=== PATIENT | male | born 1980 | race Two or more races ===

== ENCOUNTER 2022-05-14 00:30 | Emergency (ER) | payer OTHER ==
[~2022-05-14] VITALS: Ht 177.8 cm; Wt 83.9 kg
[2022-05-14] MEDS ORDERED: LIDOCAINE HCL 1% 20 ML VIAL ONE (01:25)
[2022-05-14] MEDS ORDERED: LIDOCAINE HCL 1% 20 ML VIAL INJ SCH (02:00)
[2022-05-14] MEDS ORDERED: CEPH500B PO (02:14)
[2022-05-14 02:16] VITALS: BP 131/98
[2022-05-14] MEDS ORDERED: TETANUS/DIPHTHERIA TOXOID [ADULT] 0.5 ML VIAL IM ONE (02:30)
== END 2022-05-14 02:25 | disposition home or self-care (01) ==
LOC: EDH 00:30
DX: S81.811A Laceration without foreign body, right lower leg, initial encounter (principal); W25.XXXA Contact with sharp glass, initial encounter; Y93.89 Activity, other specified; Y92.89 Other specified places as the place of occurrence of the external cause; Y99.8 Other external cause status
CPT/HCPCS: 12005; 73590; 90471; 90714